=== PATIENT | female | born 1990 | race Caucasian/White ===

== ENCOUNTER 2020-07-07 04:16 | Emergency (ER) | payer MEDICAID ==
[~2020-07-07] VITALS: Ht 165.1 cm; Wt 100.0 kg
[2020-07-07 04:23] VITALS: Ht 165.1 cm; Wt 100.0 kg
[2020-07-07 05:00] VITALS: BP 132/78
== END 2020-07-07 05:00 | disposition home or self-care (01) ==
LOC: ED 04:16
DX: K02.9 Dental caries, unspecified (principal); K04.7 Periapical abscess without sinus